=== PATIENT | male | born 1985 | race Two or more races ===

== ENCOUNTER 2020-04-03 13:21 | Emergency (ER) | payer MEDICAID ==
[~2020-04-03] VITALS: Ht 162.6 cm; Wt 90.7 kg
--- NOTE | 2020-04-03 14:13 | NUR ---
GENERAL EDUCATION INSTRUCTOR: PT AMBULATORY WITH STEADY GAIT TO ROOM AT THIS TIME. JO
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
[2020-04-03 15:13] VITALS: BP 115/72
--- NOTE | 2020-04-03 15:14 | NUR ---
PT RESTING IN BED, CALL LIGHT IN REACH, AWARE OF POC.
--- NOTE | 2020-04-03 15:39 | NUR ---
RECEIVED REPORT FROM DELONTE LOZOYA, PLAN OF CARE DISCUSSED.
--- NOTE | 2020-04-03 15:52 | NUR ---
Patient/Caregiver given discharge instructions and they have confirmed that they understand the instructions. Patient ambulatory with steady gait.
== END 2020-04-03 15:53 | disposition home or self-care (01) ==
LOC: ED 15:25
DX: S06.0X0A Concussion without loss of consciousness, initial encounter (principal); M54.2 Cervicalgia; R11.0 Nausea; R05 Cough; X58.XXXA Exposure to other specified factors, initial encounter; Y93.89 Activity, other specified; Y92.098 Other place in other non-institutional residence as the place of occurrence of the external cause; Y99.8 Other external cause status
CPT/HCPCS: 70450; 99284